=== PATIENT | female | born 1950 | race Caucasian/White ===

== ENCOUNTER 2019-02-09 15:19 | Inpatient (IN) ==
[2019-02-09 16:40] LABS: BASO# 0.03 X1000 (0.0-0.2); BASO% 0.3 % (0.0-0.8); EOS# 0.03 X1000 (0.0-0.7); EOS% 0.3 % (0.0-10.0); HEMOGLOBIN 8.9 g/dL (12.0-16.0); IMM GRAN# 0.02 X1000 (0.0-0.04); IMM GRAN% 0.2 % (0.0-0.5); LYMPH# 1.28 X1000 (1.2-3.4); LYMPH% 14.4 % (20.5-51.1); MCH 30.8 PG (27-31); MCV 93.4 FL (81-99); MONO# 0.56 X1000 (0.11-0.59); MONO% 6.3 % (1.7-9.3); NEUT# 6.96 X1000 (1.4-6.5); NEUT% 78.5 % (42.2-75.2); PLT 341 X1000 (130-400); RBC 2.89 XMIL (4.2-5.4); RDW 11.7 % (11.5-14.5); WBC 8.88 X1000 (4.8-10.8)
[2019-02-09 16:55] LABS: INR 0.92; PROTIME 13.1 Seconds (11.0-16.0); PTT 25.1 Seconds (22.3-41.8)
[2019-02-09] MEDS ORDERED: NS 1,000 ML IV ONE ×2 (16:57→16:58)
[2019-02-09] MEDS ORDERED: PROTONIX PO ONE (16:58)
[2019-02-09 17:01] LABS: AGAP 12; ALB/GLOB RATIO 2.2; ALBUMIN 3.8 g/dL (3.5-5.0); ALKALINE PHOSPHATASE 82 U/L (32-104); BUN 20 mg/dL (8-22); CALCIUM 8.9 mg/dL (8.8-10.2); CHLORIDE 104 mmol/L (98-107); COSMO 279; CREATININE 0.7 mg/dL (0.5-0.9); ESTIMATED GFR > 60; GLUCOSE 120 mg/dL (70-104); GOT 15 U/L (10-30); GPT 13 U/L (10-36); POTASSIUM 4.2 mmol/L (3.5-5.1); SODIUM 138 mmol/L (136-145); TCO2 22 mmol/L (25-35); TOTAL BILIRUBIN < 0.15 mg/dL (0.20-1.00); TOTAL PROTEIN 5.5 g/dL (6.3-8.3)
--- NOTE | 2019-02-09 19:05 | PROVIDER DOCUMENTATION ---
This chart was entered by Selma Rossi Scribe, acting as scribe for Quentin Swenson MD. HPI-General Adult - General Source: patient, family () - History of Present Illness -Gen Adult Nature of Presenting Problems: 68 yowf presents to the ed with c/o rectal bleeding intermittent since friday. pt on exam is pale and sts today had a near syncopal episode while in the shower. pt denies LOC but sts she sit in the shower till feeling passed. pt sts noted bleeding has been dark and bright red in color Location of Pain/Injury: reports: other (rectal bleeding) Pain Radiation: reports: no radiation Quality of Pain: reports: none Severity: reports: moderate Onset/Duration: reports: 2 days ago Timing: reports: still present Context/Activities at Onset: reports: light activity Modifying Factors: improves with: nothing Associated Symptoms: reports: diarrhea, fatigue, genitourinary problems (rectal bleeding), nausea, vomiting, weakness. denies: back/neck pain, chest pain Similar Symptoms Previously?: No Recently seen or treated by another doctor?: No <Quentin Swenson - Last Filed: 02/09/19 19:04> <Mi Beaver - Last Filed: 02/09/19 20:29> - General Chief Complaint: GI Bleed Stated Complaint: WEAK/PASSING BLOOD Time Seen by Provider: 02/09/19 16:27 Allergies/Adverse Reactions: Patient Allergies Allergy/AdvReac Type Severity Reaction Status Date / Time amoxicillin AdvReac Unknown Verified 02/09/19 16:27 codeine AdvReac NAUSEA/VOMI Verified 06/25/14 10:35 TING Home Medications: Home Medication List Medication Instructions Recorded Confirmed Last Taken Type Losartan/Hydrochlorothiazide 1 each PO DAILY 06/25/14 02/09/19 06/25/14 History [Losartan-Hctz 100-12.5 mg Tab] PRAVAstatin [Pravachol] 10 mg PO QHS 06/25/14 02/09/19 06/24/14 History Amlodipine Besylate 10 mg PO DAILY 02/09/19 02/09/19 Unknown History Aspirin 81 mg PO DAILY 02/09/19 02/09/19 Unknown History Cholecalciferol (Vitamin D3) 1,000 unit PO DAILY 02/09/19 02/09/19 Unknown History [Vitamin D3] Ergocalciferol (Vitamin D2) 1 cap PO DIRECTED 02/09/19 02/09/19 Unknown History [Vitamin D] Potassium Chloride [Klor-Con 10] 10 meq PO DAILY 02/09/19 02/09/19 Unknown History Torsemide [Demadex] 20 mg PO DAILY 02/09/19 02/09/19 Unknown History Review of Systems - Adult - REVIEW OF SYSTEMS - ADULT Constitutional: denies: chills, fever Eyes: reports: no symptoms reported Ears, Nose, Mouth & Throat: reports: no symptoms reported Cardiovascular: denies: chest pain, palpitations, syncope Respiratory: denies: cough, shortness of breath, wheezing Gastrointestinal: reports: see HPI, diarrhea, nausea, poor appetite, rectal bleeding, vomiting. denies: abdominal pain Genitourinary: reports: no symptoms reported Musculoskeletal: denies: back pain, neck pain Integumentary: reports: no symptoms reported Neurological: reports: see HPI. denies: dizziness/vertigo, headache/migraines, syncope (near syncope) Psychiatric: reports: no symptoms reported Endocrine: reports: no symptoms reported Hematologic/Lymphatic: reports: see HPI, low blood count Allergic/Immunologic: reports: no symptoms reported All Other Systems: Reviewed and Negative <Quentin Swenson - Last Filed: 02/09/19 19:04> Past History - Adult - PAST MEDICAL HISTORY-ADULT Review of Records: reports: Old Records Reviewed, Nursing Assessment Review, Medications Reviewed, Social history reviewed & non-contributory. 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) Respiratory: reports: denies history Gastrointestinal: reports: denies history Obstetrical/Gynecological: reports: denies history Genitourinary: reports: denies history Musculoskeletal: reports: denies history Neurological: reports: denies history Endocrine/Immune: reports: denies history Other Conditions: reports: denies history - PRIOR SURGERIES/PROCEDURES Surgical/Procedure History: reports: reviewed, not pertinent - IMMUNIZATION STATUS Childhood Immunizations: See Nurse Assessment Flu Vaccine: See Nurse Assessment - FAMILY HISTORY Family History: reviewed, not pertinent - SOCIAL HISTORY Smoking: denies Substance Use: denies Living Situation: family <Quentin Swenson - Last Filed: 02/09/19 19:04> Physical Exam-General - PHYSICAL EXAM-ADULT Initial Vital Signs Reviewed: Yes - CONSTITUTIONAL General Appearance: appears well, alert, no apparent distress - EYES Eyes: PERRL/EOMI, pale conjunctivae - HEAD, EARS, NOSE, MOUTH & THROAT HENMT: moist mucous membranes, normal ENT inspection - NECK Neck: non-tender, full range of motion, supple, normal inspection - RESPIRATORY Respiratory: chest non-tender, lungs clear, normal breath sounds, no pleuratic chest pain, no respiratory distress - CARDIOVASCULAR Cardiovascular: normal peripheral pulses, regular rate, rhythm - CHEST (BREASTS) Chest/Breast: deferred - GASTROINTESTINAL (ABDOMEN) Abdominal Exam: normal bowel sounds, non tender, soft - GENITOURINARY Female Genitalia/Pelvic Exam: deferred Hemoccult Exam: other (dark maroon stool) - LYMPHATIC Lymphatic: no adenopathy - MUSCULOSKELETAL Back Exam: normal inspection, no CVA tenderness, no vertebral tenderness Extremity: normal range of motion, non-tender, normal gait, normal inspection - SKIN Integumentary: normal turgor, warm/dry, pallor - NEUROLOGIC Neurologic: grossly normal - PSYCHIATRIC Psych/Mental Status: normal mood/affect, normal thought content, normal thought process, oriented x 3 <Quentin Swenson - Last Filed: 02/09/19 19:04> Progress - PLAN OF CARE/RESULTS Progress/Plan/Lab Results: Vital Signs - 8 hr 02/09/19 15:45 02/09/19 16:17 02/09/19 16:30 Temperature 97.6 F Pulse Rate 97 H 94 H Respiratory Rate 18 16 Blood Pressure 111/68 110/74 O2 Sat by Pulse Oximetry 100 100 100 Laboratory Results - last 24 hr 02/09/19 02/09/19 02/09/19 16:14 16:14 16:14 WBC 8.88 RBC 2.89 L Hgb 8.9 L Hct 27.0 L MCV 93.4 MCH 30.8 MCHC 33.0 RDW Std Deviation 11.7 Plt Count 341 MPV 10.0 Immature Gran % (Auto) 0.2 Neut % (Auto) 78.5 H Lymph % (Auto) 14.4 L [place] % (Auto) 6.3 Eos % (Auto) 0.3 Baso % (Auto) 0.3 Immature Gran # (Auto) 0.02 Neut # (Auto) 6.96 H Lymph # (Auto) 1.28 [place] # (Auto) 0.56 Eos # (Auto) 0.03 Baso # (Auto) 0.03 PT 13.1 INR 0.92 PTT (Actin FS) 25.1 Sodium 138 Potassium 4.2 Chloride 104 Carbon Dioxide 22 L Anion Gap 12 BUN 20 Creatinine 0.7 Estimated GFR/1.73 m2 > 60 BUN/Creatinine Ratio 29 Glucose 120 H Calculated Osmolality 279 Calcium 8.9 Total Bilirubin < 0.15 L AST 15 ALT 13 Alkaline Phosphatase 82 Total Protein 5.5 L Albumin 3.8 Globulin 1.7 Albumin/Globulin Ratio 2.2 Orders Category Date Time Status CBC WITH ELECTRONIC DIFF [HEME] Stat Lab 02/09/19 16:14 Completed COMPREHENSIVE METABOLIC PANEL [CHEM] Stat Lab 02/09/19 16:14 Completed OCCULT BLOOD SCREENING [STOOL] Stat Lab 02/09/19 15:50 Uncollected PROTIME WITH INR [COAG] Stat Lab 02/09/19 16:14 Completed PTT [COAG] Stat Lab 02/09/19 16:14 Completed TYPE & SCREEN [BBK] Stat Lab 02/09/19 16:14 Received 0.9% Sodium Chloride Inj [Ns] 1,000 ml Med 02/09/19 16:58 Active IV 150 mls/hr 0.9% Sodium Chloride Inj [Ns] 1,000 ml Med 02/09/19 16:57 Active IV 999 mls/hr Pantoprazole [Protonix] Med 02/09/19 16:58 Discontinued 40 mg PO NOW ONE GI Bleed (possible) Stat Oth 02/09/19 15:50 Ordered Result Diagrams: 02/09/19 16:14 02/09/19 16:14 - CHANGE OF SHIFT REPORT (ED Provider) 1 Report Given and Care Transferred to:: [facility] Time of Transfer: 19:00 Items Pending: Physician Consult/Arrival <Quentin Swesnon - Last Filed: 02/09/19 19:04> - PLAN OF CARE/RESULTS Progress/Plan/Lab Results: Vital Signs - 8 hr 02/09/19 15:45 02/09/19 16:17 02/09/19 16:30 Temperature 97.6 F Pulse Rate 97 H 94 H Respiratory Rate 18 16 Blood Pressure 111/68 110/74 O2 Sat by Pulse Oximetry 100 100 100 02/09/19 16:33 02/09/19 17:00 02/09/19 17:03 Temperature Pulse Rate 91 H 96 H 94 H Respiratory Rate 14 15 21 Blood Pressure 117/63 128/64 O2 Sat by Pulse Oximetry 98 95 97 02/09/19 17:30 02/09/19 17:33 02/09/19 18:28 Temperature Pulse Rate 89 88 94 H Respiratory Rate 21 13 18 Blood Pressure 108/68 124/68 O2 Sat by Pulse Oximetry 100 96 100 02/09/19 18:30 02/09/19 18:33 02/09/19 18:40 Temperature Pulse Rate 95 H 93 H 91 H Respiratory Rate 22 21 12 Blood Pressure 130/66 124/68 O2 Sat by Pulse Oximetry 99 99 97 02/09/19 18:05 Stool Occult Blood (NURIS) - Final Stool Laboratory Results - last 24 hr 02/09/19 02/09/19 02/09/19 16:14 16:14 16:14 WBC 8.88 RBC 2.89 L Hgb 8.9 L Hct 27.0 L MCV 93.4 MCH 30.8 MCHC 33.0 RDW Std Deviation 11.7 Plt Count 341 MPV 10.0 Immature Gran % (Auto) 0.2 Neut % (Auto) 78.5 H Lymph % (Auto) 14.4 L [place] % (Auto) 6.3 Eos % (Auto) 0.3 Baso % (Auto) 0.3 Immature Gran # (Auto) 0.02 Neut # (Auto) 6.96 H Lymph # (Auto) 1.28 [place] # (Auto) 0.56 Eos # (Auto) 0.03 Baso # (Auto) 0.03 PT 13.1 INR 0.92 PTT (Actin FS) 25.1 Sodium 138 Potassium 4.2 Chloride 104 Carbon Dioxide 22 L Anion Gap 12 BUN 20 Creatinine 0.7 Estimated GFR/1.73 m2 > 60 BUN/Creatinine Ratio 29 Glucose 120 H Calculated Osmolality 279 Calcium 8.9 Total Bilirubin < 0.15 L AST 15 ALT 13 Alkaline Phosphatase 82 Total Protein 5.5 L Albumin 3.8 Globulin 1.7 Albumin/Globulin Ratio 2.2 Blood Type Antibody Screen 02/09/19 16:14 WBC RBC Hgb Hct MCV MCH MCHC RDW Std Deviation Plt Count MPV Immature Gran % (Auto) Neut % (Auto) Lymph % (Auto) [place] % (Auto) Eos % (Auto) Baso % (Auto) Immature Gran # (Auto) Neut # (Auto) Lymph # (Auto) [place] # (Auto) Eos # (Auto) Baso # (Auto) PT INR PTT (Actin FS) Sodium Potassium Chloride Carbon Dioxide Anion Gap BUN Creatinine Estimated GFR/1.73 m2 BUN/Creatinine Ratio Glucose Calculated Osmolality Calcium Total Bilirubin AST ALT Alkaline Phosphatase Total Protein Albumin Globulin Albumin/Globulin Ratio Blood Type A POSITIVE Antibody Screen NEGATIVE Orders Category Date Time Status CBC WITH ELECTRONIC DIFF [HEME] Stat Lab 02/09/19 16:14 Completed COMPREHENSIVE METABOLIC PANEL [CHEM] Stat Lab 02/09/19 16:14 Completed OCCULT BLOOD SCREENING [STOOL] Stat Lab 02/09/19 18:05 Completed PROTIME WITH INR [COAG] Stat Lab 02/09/19 16:14 Completed PTT [COAG] Stat Lab 02/09/19 16:14 Completed TYPE & SCREEN [BBK] Stat Lab 02/09/19 16:14 Completed 0.9% Sodium Chloride Inj [Ns] 1,000 ml Med 02/09/19 16:58 Active IV 150 mls/hr 0.9% Sodium Chloride Inj [Ns] 1,000 ml Med 02/09/19 16:57 Discontinued IV 999 mls/hr Pantoprazole [Protonix] Med 02/09/19 16:58 Discontinued 40 mg PO NOW ONE GI Bleed (possible) Stat Oth 02/09/19 15:50 Ordered Result Diagrams: 02/09/19 16:14 02/09/19 16:14 - CONSULTS/PCP/HOSPITALIST Notification #1 *Consult/PCP/Hospitalist*: Dr Jones Time Discussed: 20:03 Consult Disposition: Admit <Mi Beaver - Last Filed: 02/09/19 20:29> Departure - Departure Date of Disposition Decision: 02/09/19 Time of Disposition Decision: 18:28 Certified Medical Emergency: Emergent - Critical Care Note This patient required my direct & personal management of CC.: No <Quentin Swenson - Last Filed: 02/09/19 19:04> <Mi Beaver - Last Filed: 02/09/19 20:29> - Departure DIAGNOSIS: GI bleed Disposition: ADMITTED INPATIENT 09 Condition: Stable Referrals and Follow-Ups: Mary Velasco MD [Primary Care Provider] - Attestation - Physician/ BRIDGET Attestation Patient care was provided by Advanced Practice Provider:: No The physician spent face to face time with patient:: Yes Advanced Practice Provider documentation review:: Supervising physician onsite and consulted in the evaluation and care of this patient. The physician did have a face to face encounter with the patient. <Quentin Swenson - Last Filed: 02/09/19 19:04> This chart was documented by the indicated scribe, (Selma Rossi Scribe) and accurately reflects the services I performed and decisions made by me, Quentin Swenson MD, as attested by the provider's signature.
--- NOTE | 2019-02-09 21:56 | HISTORY AND PHYSICAL ---
PRIMARY CARE PHYSICIAN: Dr. Mary Velasco. CHIEF COMPLAINT: Diarrhea and blood for the past 2 days. HISTORY OF PRESENTING ILLNESS: This is a 68-year-old female with a history of hypertension and hyperlipidemia who presented to the emergency department with 2 days history of having diarrhea and noticing blood in the stool. She described the blood as dark blood and subsequently she had come to the emergency department. In the ED, she was evaluated and as per ER physician, she was Hemoccult positive. Due to these presenting symptoms and findings, she will require admission for further management. At the time of my examination, she denied any headache, fever, chills, chest pain, shortness of breath, but complained of melanotic stools and diarrhea. PAST MEDICAL HISTORY: Includes hypertension, hyperlipidemia. PAST SURGICAL HISTORY: None. ALLERGIES: Amoxicillin and codeine. CURRENT MEDICATIONS: Include Norvasc 10 mg p.o. daily, aspirin 81 mg p.o. daily, losartan HCT 100/12.5 one p.o. daily, potassium 10 mEq p.o. daily, pravastatin 10 mg p.o. at bedtime, torsemide 20 mg p.o. daily. SOCIAL HISTORY: No history of smoking, alcohol or illicit drug use. FAMILY HISTORY: No history of coronary disease. REVIEW OF SYSTEMS: Fourteen point review of system as listed in HPI. Other systems negative. PHYSICAL EXAMINATION: GENERAL: Cooperative, friendly female. She is resting comfortably now. VITAL SIGNS: Temperature 97.6 degrees, pulse 97, respiration 18, blood pressure 111/68. HEENT: Atraumatic, normocephalic. Extraocular movements intact. PERRLA. NECK: Supple. CHEST: Clear to auscultation. CARDIOVASCULAR: Regular rate and rhythm. ABDOMEN: Soft. Positive bowel sounds. EXTREMITIES: No edema. NEUROLOGIC: She is awake, alert, oriented x3. Other exam nonfocal. GENITOURINARY: No bladder distention. SKIN: Warm. LABORATORIES AND STUDIES: WBCs 8.88, hemoglobin 8.9, hematocrit 27.0, platelets 341,000. Sodium 138, potassium 4.2, chloride 104, CO2 22, BUN is 20, creatinine 0.7, glucose is 120. ASSESSMENT: This is a 68-year-old female with a history of hypertension, hyperlipidemia, who presented to the emergency department with 2 days history of having diarrhea and dark blood in her stools. She was evaluated in the emergency department. Due to her presenting symptoms, she will require admission for further management. ASSESSMENT: 1. Suspected upper gastrointestinal bleed. 2. Hypertension. 3. Hyperlipidemia. PLAN: 1. We will admit patient to medical floor with telemetry. 2. We will keep patient NPO. 3. Continue patient on pantoprazole IV. 4. We will consult Gastroenterology. 5. Continue to monitor hemoglobin and hematocrit closely. 6. Monitor blood pressure closely. 7. We will hold other home medications for now. 8. We will put patient on deep vein thrombosis prophylaxis with sequential compression devices. 9. We will continue to follow and reassess. Make further recommendation based on patient's clinical course. cc: Cesario Jones MD
[2019-02-09] MEDS ORDERED: PROTONIX IV SCH (22:56)
[2019-02-09] MEDS ORDERED: SODIUM CHLORIDE 0.9% INJ SCH (22:56)
[2019-02-09] MEDS ORDERED: ZOFRAN IV PRN (22:56)
[2019-02-10] MEDS ORDERED: SODIUM CHLORIDE 0.9% INJ SCH (00:30)
[2019-02-10 02:54] LABS: URINE SOURCE CLEAN CATCH
[2019-02-10 03:02] LABS: BILIRUBIN URINE NEGATIVE (NEGATIVE); BLOOD URINE NEGATIVE (NEGATIVE); COLOR YELLOW; GLUCOSE URINE NEGATIVE (NEGATIVE); KETONE URINE NEGATIVE (NEGATIVE); LEUKOCYTES URINE TRACE (NEGATIVE); NITRITE URINE NEGATIVE (NEGATIVE); PH URINE 5.5; PROTEIN URINE NEGATIVE (NEGATIVE); SP GRAVITY URINE 1.026; TURBIDITY URINE CLEAR (CLEAR); UROBILINOGEN URINE NORMAL (NORMAL)
[2019-02-10 03:03] LABS: UR EPITHELIAL CELLS <10 /HPF (<10); URINE BACTERIA NEGATIVE /HPF; URINE RBC <10 /HPF (<10); URINE WBC <10 /HPF (<10)
[2019-02-10] MEDS ORDERED: NEXIUM IV SCH (05:00)
[2019-02-10 08:34] LABS: AGAP 6; BUN 24 mg/dL (8-22); CALCIUM 7.7 mg/dL (8.8-10.2); CHLORIDE 112 mmol/L (98-107); COSMO 287; CREATININE 0.6 mg/dL (0.5-0.9); ESTIMATED GFR > 60; GLUCOSE 103 mg/dL (70-104); SODIUM 142 mmol/L (136-145); TCO2 24 mmol/L (25-35)
[2019-02-10 08:42] LABS: BASO# 0.02 X1000 (0.0-0.2); BASO% 0.2 % (0.0-0.8); EOS# 0.05 X1000 (0.0-0.7); EOS% 0.5 % (0.0-10.0); HEMATOCRIT 19.4 % (37.0-47.0); HEMOGLOBIN 6.2 g/dL (12.0-16.0); LYMPH# 2.61 X1000 (1.2-3.4); LYMPH% 27.8 % (20.5-51.1); MCH 30.7 PG (27-31); MONO# 0.57 X1000 (0.11-0.59); MONO% 6.1 % (1.7-9.3); MPV 10.2 FL (7.4-10.4); NEUT# 6.14 X1000 (1.4-6.5); NEUT% 65.4 % (42.2-75.2); PLT 281 X1000 (130-400); RBC 2.02 XMIL (4.2-5.4); RDW 12.2 % (11.5-14.5); WBC 9.39 X1000 (4.8-10.8)
--- NOTE | 2019-02-10 08:48 | PROGRESS NOTE ---
DATE: 02/10/2019 SUBJECTIVE: Ms. Trevino was admitted overnight. This morning, there was a CAT call because she fell down. She blacked out using the restroom. I understand she had a lot of bleeding early this morning when she was using the restroom. Subsequently, she just passed out and a CAT call was made. When I came to see her, a lot of providers were assisting at the time including the nurses. Ms. Trevino was extremely pale and the was at the bedside. Ms. Trevino and the tell me that Ms. Trevino takes ibuprofen on a regular basis. However, for the past 2 weeks, she has been taking more than necessary because she has hurt her back working in the garden. Since Friday, she has been having some maroon-colored bleeding. She came to the emergency department because of symptomatic anemia. OBJECTIVE: Current Vital Signs: Blood pressure is 116/63, pulse of 100, respiration are 14, temperature is 98.2 degrees, the patient is saturating 99% on room air. General Examination: Ms. Trevino is a 68-year-old, female. She is in bed. She looks extremely pale. Neck: Supple. Chest: Clear to auscultation. No crepitations. No rhonchi. Cardiovascular: Slightly tachycardic but no murmurs, no rubs, no gallops. Abdomen: Soft, nontender. Extremities: No pedal edema. LATHE TENDER: The patient is awake, alert, oriented, but just extremely weak and tired. Laboratory Data: No new lab work. Yesterday, her hemoglobin was 8.9. ASSESSMENT: 1. Acute gastrointestinal bleed with hemodynamic instability associated with syncopal episode this morning. The patient is going to be transferred to the intensive care unit. We will continue with hemodynamic monitoring. She is going to be grouped and crossmatched, and given 2 units of packed red blood cells stat, and transfuse accordingly. Gastroenterology has also been consulted and we are waiting for their recommendations. The patient is also on a proton pump inhibitor. 2. Anemia secondary to acute gastrointestinal blood loss. 3. History of hypertension. 4. Dyslipidemia. PLAN: Ms. Trevino is going to be transferred to the ICU, grouped and crossmatched, transfused 2 PRBCs stat. Check another hemoglobin and hematocrit 2 hours after transfusion and await further recommendations from GI. Plan has been discussed in detail with the patient and the who was at the bedside. Critical time spent 45 minutes cc: Brett Liz MD MTDD
--- NOTE | 2019-02-10 09:23 | EKG Report ---
Test Performed on : 02/10/2019 08:09:30 AM Test Reason : CAT CALL Blood Pressure : / mmHG Vent. Rate : 096 BPM Atrial Rate : 096 BPM P-R Int : 118 ms QRS Dur : 086 ms QT Int : 328 ms P-R-T Axes : 065 005 247 degrees QTc Int : 414 ms Normal sinus rhythm. Nonspecific T wave abnormality Abnormal ECG No previous ECGs available Confirmed by Dheeraj Foster MD ([id number]) on 02/10/2019 6:05:58 PM
[2019-02-10] MEDS: NS 1,000 ML IV SCH ×2 (10:27→23:15)
[2019-02-10] MEDS: NORVASC PO SCH (10:28)
--- NOTE | 2019-02-10 12:48 | GASTROENTEROLOGY CONSULTATION ---
DATE: 02/10/2019 REASON FOR CONSULTATION: GI bleeding, severe anemia, syncope. HISTORY OF PRESENT ILLNESS: This is a 68-year-old, white female who reports onset of symptoms Friday night. She had woke up with diarrhea and had several maroon-colored stools. On Friday, she took an Imodium and did not have bowel movements. Friday morning, she had 2 more bloody stools. She was in the shower at home and passed out. She came in to the hospital for further evaluation. This morning, the patient had a large bloody maroon-colored stool and again passed out. A CAT call was placed and she has been transferred to CCU. Currently, she is awake and alert. No acute distress. Her is at the bedside. She has received 2 units of packed red blood cells. Her vital signs have remained stable with some slight drop in her blood pressure, lowest reading of 100/58. Hemoglobin and hematocrit this morning were 6.2 and 19.4. Patient reports hurting her neck moving some furniture and cleaning out her mother's house about 2 weeks ago. Since then, she has been taking frequent ibuprofen. She also takes an 81 mg aspirin. Her last colonoscopy was in 2013 that showed diverticulosis. Currently, she denies abdominal pain. PAST MEDICAL HISTORY: Hypertension, hyperlipidemia. PAST SURGICAL HISTORY: Oral surgery and a digital cyst removed from her right finger. ALLERGIES: Amoxicillin, codeine. HOME MEDICATIONS: Amlodipine 10 mg daily, aspirin 81 mg daily, vitamin D3 daily, vitamin D as directed, losartan/hydrochlorothiazide 100/12.5 daily, potassium 10 mEq daily, Pravachol 10 mg every night, Demadex 20 mg daily. SOCIAL HISTORY: She denies tobacco or alcohol use. She is . She has 2 children. REVIEW OF SYSTEMS: HEENT: She has had dizziness and syncopal episodes. Cardiovascular: No reported chest pain. Pulmonary: No reported cough or shortness of breath. GI: No reported abdominal pain. She had reported onset of bleeding and diarrhea on Friday evening. Neurological: No history of stroke or seizures. Musculoskeletal: She reports arthritis pains and also recent neck pain that she has been taking ibuprofen for. PHYSICAL EXAMINATION: Vital Signs: Temperature 98.1 degrees, pulse 88, respirations 16, blood pressure 122/65. General: The patient is awake, alert, and in no acute distress. Her is at the bedside. HEENT: Normocephalic, atraumatic. Pupils equal, round, and reactive to light. The nurse had reported significant paleness but that has improved after receiving 2 units of packed red blood cells. Respiratory: Lung sounds clear bilaterally. Cardiovascular: Regular rate and rhythm. Abdomen: Soft, nontender. Positive bowel sounds. Extremities: No lower extremity edema noted. Neurological: Cranial nerves 2-12 grossly intact. Patient is awake, alert, oriented to person, place, and time. DIAGNOSTIC RESULTS: Laboratory: WBC 9.39, hemoglobin 6.2, hematocrit 19.4, MCV 96.0, platelets 281,000. Coagulation: Prothrombin time 13.1, INR 0.92, PTT 25.1. Chemistry: Sodium 142, potassium 4.0, chloride 112, CO2 24, BUN 24, creatinine 0.6, glucose 103, calcium 7.7. Total bilirubin less than 0.15, AST 15, ALT 13, alkaline phosphatase 82. ASSESSMENT AND PLAN: 1. Acute gastrointestinal bleeding. 2. Syncope. 3. Severe anemia. Patient has received 2 units of packed red blood cells. Hemoglobin and hematocrit will be repeated. Transfuse further packed red blood cells if needed. 4. Recent nonsteroidal anti-inflammatory drug use. Patient had been using frequent ibuprofen along with her aspirin 81 mg daily. Patient's last colonoscopy was in 2013, that showed diverticulosis. 5. We will proceed with esophagogastroduodenoscopy for further evaluation. Monitor hemoglobin and hematocrit. Monitor for further active bleeding. Transfuse further packed red blood cells if needed. I have explained the esophagogastroduodenoscopy procedure to the patient along with her and they wish to proceed. I have discussed benefits versus risks. Further plans to be made according to findings. Thank you for this consultation. I have discussed this case with Dr. Odell. Dictated by MAYCOL Keller for Ryne Odell MD cc: MAYCOL Cordero MD [facility]
[2019-02-10 13:09] LABS: HEMOGLOBIN 8.7 g/dL (12.0-16.0)
[2019-02-10 13:10] LABS: HEMATOCRIT 26.8 % (37.0-47.0)
[2019-02-10] MEDS ORDERED: DIPRIVAN 1% ONE (14:16)
[2019-02-10] MEDS ORDERED: XYLOCAINE-MPF 2% ONE (14:42)
--- NOTE | 2019-02-10 14:51 | ENDOSCOPY OPERATIVE NOTE ---
[facility] ENDOSCOPY OPERATIVE NOTE , PATIENT: Brooke Trevino ADMISSION DATE: 02/10/2019 MR#: [id number] : 1950 [id number] EGD PROCEDURE REPORT PROCEDURE DATE: 02/10/2019 SURGEON: Ryne Odell MD STATUS: inpatient COAT TAILOR: Brayan Pineda and Sima Jacob PREOPERATIVE DIAGNOSIS: The patient is a 68 yr old female here for an EGD due to hematochezia, melen a, and acute post hemorrhagic anemia. PROCEDURE PERFORMED: EGD, diagnostic MEDICATIONS: Per Anesthesia TOPICAL ANESTHETIC: none CONSENT: The patient understands the risks and benefits of the procedure and understands that these r isks include, but are not limited to: sedation, allergic reaction, infection, perforation and/or bleeding. Alternative means of evaluation and treatment include, among others: physical exam, x-rays, and/or surgical intervention. The patient elects to proceed with this endoscopic procedure. HISORY AND PHYSICAL: 02/10/2019 function. Hand hygiene and appropriate measures for infection prevention was taken. After the risks, benefits and alternatives of the procedure were thoroughly explained, Informed consent was verified, confirmed and timeout was successfully executed by the treatment team. The patient was anesthetized with topical anesthesia and the [id number] ([id number]) endoscope was introduced through the mouth and advanced to the second portion of the duoden um. Retroflexion was performed in the stomach and revealed no abnormalities. The gastroscope was then slowly withdraw n and removed. ESOPHAGUS: The mucosa of the esophagus appeared normal. STOMACH: The mucosa of the stomach appeared normal. DUODENUM: The duodenal mucosa showed no abnormalities. PERTINENT NEGATIVES: There was no evidence of blood. SPECIMENS REMOVED: No ADVERSE EVENTS: There were no complications. POSTOPERATIVE DIAGNOSIS: 1. The mucosa of the esophagus appeared normal 2. The mucosa of the stomach appeared normal 3. The duodenal mucosa showed no abnormalities RECOMMENDATIONS: 1. Resume pre-procedure medications 2. Transfer to ICU REPEAT EXAM: Ryne Odell MD eSigned: Ryne Odell MD 02/10/2019 2:51 PM cc: PATIENT NAME: Brooke Trevino MR#: [id number]
[2019-02-10 21:31] LABS: HEMATOCRIT 26.5 % (37.0-47.0); HEMOGLOBIN 8.7 g/dL (12.0-16.0)
[2019-02-11 05:39] LABS: HEMATOCRIT 24.7 % (37.0-47.0); HEMOGLOBIN 8.2 g/dL (12.0-16.0)
[2019-02-11] MEDS: PRILOSEC PO SCH (06:27)
[2019-02-11] MEDS: NORVASC PO SCH (08:24)
--- NOTE | 2019-02-11 09:07 | PROGRESS NOTE ---
DATE: 02/11/2019 SUBJECTIVE: This morning Ms. Trevino referred to be doing well. No new complaints. She did have a bowel movement early on today which still looked dark maroon-colored. OBJECTIVE: Vital signs: Blood pressure is 132/77, pulse of 93, respirations 14, temperature 98.7 degrees. General: Ms. Trevino is a 68-year-old female. She is in bed. She is not in any distress. HEENT: Mucosa is pink and moist. Anicteric. Acyanotic. Neck: Supple. Chest: Clear to auscultation. Cardiovascular: Regular rate and rhythm. Abdomen: Soft, nontender. Extremities: No pedal edema TECHNOLOGY TEACHER: Patient is awake, alert, and oriented. There is no focal neurological deficit. LABORATORY DATA: The patient hemoglobin is 8.2, glucose is 141 this morning. An esophagogastroduodenoscopy was done yesterday which shows normal esophageal mucosa and normal stomach as well as no abnormality shown on the duodenum. ASSESSMENT: 1. Acute gastrointestinal bleed with hemodynamic instability. The patient is currently hemodynamically stable. No more symptomatic. She is status post esophagogastroduodenoscopy which was unremarkable and there is a plan for colonoscopy tomorrow. We will continue to monitor her hemoglobin and hematocrit. 2. Anemia secondary to acute gastrointestinal blood loss. Hemoglobin is currently at 8.2. The patient is status post 2 packed red blood cell transfusion. She did have another bowel movement this morning which was bloody. We will repeat the hemoglobin and hematocrit later on today and transfuse if needed. 3. History of hypertension, stable. 4. Dyslipidemia controlled. PLAN: So in general I think Ms. Trevino is now hemodynamically stable. She is no more symptomatic. However, she did have another bowel movement this morning which was bloody. We are going to continue to trend her hemoglobin and hematocrit, transfuse if necessary and await for colonoscopy tomorrow. We will still keep Ms. Trevino in the ICU for today. cc: Brett Liz MD
[2019-02-11] MEDS ORDERED: GOLYTELY PO ONE (14:00)
[2019-02-11 16:48] LABS: HEMATOCRIT 27.7 % (37.0-47.0); HEMOGLOBIN 9.4 g/dL (12.0-16.0)
--- NOTE | 2019-02-11 19:15 | GASTROENTEROLOGY PROGRESS NOTE ---
DATE: 02/11/2019 PRIMARY RECEIVING COORDINATOR: Ryne Odell MD SUBJECTIVE: The patient is currently resting in bed. She is drinking GoLytely. She is preparing for colonoscopy tomorrow. She is passing old blood in the stools. She denies any nausea, vomiting or vomiting blood. OBJECTIVE: Vital signs: Temperature 99.1 degrees, pulse of 97, respiratory rate of 16, blood pressure 140/65, saturating 96% on room air. Body weight of 146 pounds 1.6 ounces, BMI 26.7 kg/m2. Generally the patient is moderately nourished, sitting in bed in no acute distress. HEENT: Pale conjunctivae. No icterus. Neck is supple. Abdomen is soft, nontender, nondistended. No guarding. Extremities: No cyanosis, clubbing or edema. Neurologic-fraser, alert, awake, oriented x3. LABORATORY DATA: Her hemoglobin and hematocrit are 9.4 and 27.7. She has been given 2 units of blood transfusion yesterday. IMPRESSION: 1. Gastrointestinal bleed. 2. Anemia. 3. Negative esophagogastroduodenoscopy yesterday by Dr. Odell. 4. Hypertension. 5. Hyperlipidemia. RECOMMENDATIONS: She will continue on clear liquid diet. She will be NPO past midnight. She will finish her GoLytely. She is scheduled for colonoscopy with Dr. Odell tomorrow, and Dr. Odell will resume care from tomorrow. We will continue to watch her blood counts and transfuse as needed. She is on PPIs for GI prophylaxis. The above plan was discussed with the patient and all questions were answered. Please call us with any questions. cc: MD Ryne Rodriguez MD Lindsay E. Smith, MD
[2019-02-11 21:08] LABS: HEMATOCRIT 29.5 % (37.0-47.0); HEMOGLOBIN 9.7 g/dL (12.0-16.0)
[2019-02-12 01:30] LABS: HEMATOCRIT 26.9 % (37.0-47.0); HEMOGLOBIN 8.8 g/dL (12.0-16.0)
[2019-02-12] MEDS: PRILOSEC PO SCH (06:12)
[2019-02-12 06:14] LABS: BASO# 0.01 X1000 (0.0-0.2); BASO% 0.2 % (0.0-0.8); EOS# 0.08 X1000 (0.0-0.7); EOS% 1.2 % (0.0-10.0); HEMATOCRIT 27.8 % (37.0-47.0); HEMOGLOBIN 9.2 g/dL (12.0-16.0); LYMPH# 2.15 X1000 (1.2-3.4); LYMPH% 32.7 % (20.5-51.1); MCH 29.7 PG (27-31); MCHC 33.1 g/dL (33-37); MCV 89.7 FL (81-99); MONO# 0.62 X1000 (0.11-0.59); MONO% 9.4 % (1.7-9.3); MPV 9.5 FL (7.4-10.4); NEUT# 3.71 X1000 (1.4-6.5); NEUT% 56.5 % (42.2-75.2); PLT 260 X1000 (130-400); RDW 14.2 % (11.5-14.5); WBC 6.57 X1000 (4.8-10.8)
[2019-02-12 06:57] LABS: AGAP 12; BUN 6 mg/dL (8-22); CALCIUM 8.6 mg/dL (8.8-10.2); CHLORIDE 105 mmol/L (98-107); COSMO 280; CREATININE 0.6 mg/dL (0.5-0.9); ESTIMATED GFR > 60; GLUCOSE 87 mg/dL (70-104); POTASSIUM 3.4 mmol/L (3.5-5.1); SODIUM 142 mmol/L (136-145); TCO2 25 mmol/L (25-35)
[2019-02-12] MEDS ORDERED: DIPRIVAN 1% ONE ×2 (08:06→09:13)
[2019-02-12] MEDS ORDERED: FENTANYL ONE (08:57)
[2019-02-12] MEDS ORDERED: XYLOCAINE-MPF 2% ONE (09:13)
[2019-02-12] MEDS: NORVASC PO SCH (10:48)
--- NOTE | 2019-02-12 11:51 | Diag Imaging Result Doc PS360 ---
EXAM: SMALL BOWEL SERIES ONLY 02/12/2019 HISTORY: Acute GI bleeding eitio TECHNIQUE: Eight images, 51 seconds fluoroscopy time, 1038.7 cGy. COMMENT: There is contrast in the colon by 40 minutes. There is no evidence of mucosal fold thickening or stricture. There is no focal tenderness to palpation. The terminal ileum is normal in appearance. IMPRESSION: No definite abnormality. Electronically signed by Jeancarlos Sethi 02/12/2019 11:48 AM
--- NOTE | 2019-02-12 12:21 | PROGRESS NOTE ---
DATE: 02/12/2019 SUBJECTIVE: This morning, Ms. Trevino referred to be doing well. She just came out of endoscopy procedure. Denies any new complaints. OBJECTIVE: Vital signs: Blood pressure is 117/60, pulse of 69, respiration is 13, temperature is 98.4 degrees. General: Ms. Trevino is a 68-year-old female. She is in bed, no distress. HEENT: Mucosa is pink and moist. Anicteric. Acyanotic. Neck: Supple. Chest: Good air entry bilateral. There were no crepitations, no rhonchi. Cardiovascular: Regular rate and rhythm. There are no murmurs, no rubs, no gallops. Gastrointestinal: Abdomen is soft, nontender. Bowel sounds present. Extremities: No pedal edema. Central nervous system: Patient is awake, alert, and oriented. LABORATORY DATA: Hemoglobin was 9.2. Rest of cell count normal. Chemistry is also reviewed, potassium is 3.4, rest of chemistry is within normal range. ASSESSMENT: 1. Acute gastrointestinal bleed with hemodynamic instability on presentation, improved. Patient is currently asymptomatic. 2. Anemia secondary to acute gastrointestinal bleed. The patient is status post 2 PRBC transfusion. She has also undergone EGD which was unremarkable. A colonoscopy has been done this morning and we are pending the official report on that. 3. History of hypertension, controlled. 4. Dyslipidemia, stable. PLAN: In general, Ms. Trevino seems to be doing well. She had a colonoscopy this morning. We are waiting for the official report. Hemoglobin and hematocrit seems to be fairly stable. I think we can transfer her from the ICU to a regular medical floor and plan her discharge if the colonoscopy was unremarkable. cc: Brett Liz MD
--- NOTE | 2019-02-12 12:47 | OPERATIVE NOTE ---
PROCEDURE DATE: 02/12/2019 PROCEDURE: Colonoscopy. PREOPERATIVE DIAGNOSIS: Acute gastrointestinal bleed, anemia secondary to gastrointestinal bleed. Esophagogastroduodenoscopy negative. POSTOPERATIVE DIAGNOSIS: Mild diverticulosis, otherwise normal colon up to terminal ileum. HISTORY: This is a 68-year-old white female admitted to hospital with acute GI bleed. She was anemic. EGD was done earlier to identify the source. EGD was negative. Colonoscopy was schedule to rule out lower GI pathology. DESCRIPTION OF PROCEDURE: Informed consent obtained from the patient. The procedure, risks, benefits, alternatives were explained in layman's terms. She understood. All the pertinent questions were answered. Patient was brought to the Endoscopy Unit, and was premedicated as per Anesthesia. After adequate sedation, while she was lying in left lateral position, digital rectal exam was performed which was normal. The scope was then gently introduced into the rectum and advanced under direct vision through the parts of colon all the way up to the cecum. The cecum was identified by ileocecal valve and appendiceal orifice. Scope was then passed through the ileocecal valve into terminal ileum. About 8 to 10 cm of terminal ileum was examined, which was normal. The scope was withdrawn back into the cecum, back through the parts of colon out to the rectum, paying careful attention to details. Preparation was good. The visualized portion of the colon revealed mild diverticulosis scattered throughout the colon. A few diverticula was seen on the right side and a few on the left side also, but none of them showed any evidence of active bleeding or stigmata of recent bleed. In fact, there was not even a drop of blood or altered blood throughout the colon, including the terminal ileum. Retroflexed view of rectum revealed no pathology either. The scope was then removed. Patient tolerated the procedure well. No complications noted. Patient was then transferred to the recovery area in a stable condition. IMPRESSION: Mild diverticulosis, otherwise normal colon all the way up to the terminal ileum. RECOMMENDATION: I would resume her liquid diet and advance as tolerated once small-bowel follow- through was done, and I would recommend small-bowel follow-through to check for pathology in the small bowel resulting in her acute GI bleed. Will resume all her medications and we will follow as an outpatient after discharge if the small-bowel follow-through is negative. I have explained the findings and plan to the patient. She understands. All the pertinent questions answered. cc: Ryne Odell MD
[2019-02-13] MEDS: PRILOSEC PO SCH (06:06)
[2019-02-13 07:03] LABS: BASO# 0.01 X1000 (0.0-0.2); BASO% 0.2 % (0.0-0.8); EOS# 0.08 X1000 (0.0-0.7); EOS% 1.4 % (0.0-10.0); HEMATOCRIT 27.1 % (37.0-47.0); HEMOGLOBIN 8.8 g/dL (12.0-16.0); LYMPH% 29.2 % (20.5-51.1); MCH 29.5 PG (27-31); MCHC 32.5 g/dL (33-37); MCV 90.9 FL (81-99); MONO# 0.51 X1000 (0.11-0.59); MONO% 8.8 % (1.7-9.3); MPV 9.6 FL (7.4-10.4); NEUT# 3.52 X1000 (1.4-6.5); NEUT% 60.4 % (42.2-75.2); PLT 287 X1000 (130-400); RBC 2.98 XMIL (4.2-5.4); RDW 14.1 % (11.5-14.5); WBC 5.82 X1000 (4.8-10.8)
[2019-02-13 07:14] LABS: AGAP 9; ALBUMIN 3.4 g/dL (3.5-5.0); BUN 5 mg/dL (8-22); CALCIUM 8.9 mg/dL (8.8-10.2); CHLORIDE 106 mmol/L (98-107); COSMO 282; CREATININE 0.7 mg/dL (0.5-0.9); ESTIMATED GFR > 60; GLUCOSE 96 mg/dL (70-104); PHOSPHORUS 4.1 mg/dL (2.7-4.5); POTASSIUM 3.5 mmol/L (3.5-5.1); SODIUM 143 mmol/L (136-145); TCO2 28 mmol/L (25-35)
[2019-02-13 07:39] VITALS: BP 126/80
[2019-02-13] MEDS: NORVASC PO SCH (09:16)
--- NOTE | 2019-02-13 14:02 | GASTROENTEROLOGY PROGRESS NOTE ---
DATE: 02/13/2019 The patient has not had any further evidence of GI bleeding. She has not noticed bright red blood per rectum or melenic stool. So far, all her GI workup has been negative. EGD, colonoscopy was non-yielding, so was her small-bowel follow-through. No pathology was seen there either. At this time her hemoglobin and hematocrit has been holding, and she has not had any GI symptoms. I would recommend that from a GI perspective she can be discharged to be followed up at the office. She will need either push enteroscopy or capsule endoscopy and/or a double balloon endoscopy. That will be determined at a later date. I have discussed the case with Dr. Liz and the patient and her as well. They understood and all the pertinent questions were answered. cc: Ryne Odell MD
--- NOTE | 2019-02-13 18:25 | DISCHARGE SUMMARY ---
ADMISSION DATE: 02/09/2019 DISCHARGE DATE: 02/13/2019 DISPOSITION: Home. FOLLOWUP: 1. Dr. Mary Velasco. 2. Dr. Odell. CONSULTATIONS: During this admission, Gastroenterology was consulted. The patient was seen by Dr. Odell. INVASIVE PROCEDURES: During this admission, EGD was done which was unremarkable. A colonoscopy was done that also showed just mild diverticulosis, otherwise unremarkable. DIAGNOSTIC DATA: Imaging studies of significance: A small bowel series showed no definite abnormality. ADMISSION DIAGNOSES: 1. Suspected upper gastrointestinal bleed. 2. Hypertension. 3. Dyslipidemia. DISCHARGE DIAGNOSES: 1. Acute gastrointestinal bleed with hemodynamic instability on presentation, improved. 2. Anemia secondary to acute gastrointestinal bleed. The patient is status post 2 packed red blood cells transfusion. Hemoglobin and hematocrit are stable. The patient underwent esophagogastroduodenoscopy and colonoscopy, both of which were normal, so outpatient small bowel studies have been arranged by Dr. Odell. 3. Hypertension, controlled. 4. Dyslipidemia, stable. DISCHARGE MEDICATIONS: 1. Pravastatin 10 mg p.o. at bedtime. 2. Losartan/hydrochlorothiazide 1 tablet daily. 3. Amlodipine 10 mg p.o. daily. 4. Aspirin 81 mg daily. 5. Ergocalciferol 50,000 capsule 1 tablet daily. 6. Iron sulfate 324 b.i.d. 7. Multivitamin 1 tablet daily. PRESENTING COMPLAINT: Diarrhea and blood for 2 days. HISTORY OF PRESENTING COMPLAINT: Ms. Trevino is a 68-year-old female with a history of hypertension and dyslipidemia. She came to the emergency department because of diarrhea with bloody maroon-colored stool. She said at one point she became dizzy and nearly passed out. Upon presenting to the emergency department, she was found to be remarkably pale. A repeat hemoglobin and hematocrit had gone down to 6.2. She was transfused and was transferred to the ICU. HOSPITAL COURSE: Ms. Trevino got a total of 2 PRBC transfusion. Hemoglobin and hematocrit remained stable. She underwent both EGD and colonoscopy, both of which did not reveal the cause of her bleed. During the hospital course, however, she seemed to be fairly stable after the blood transfusion. She did not show any more ongoing active GI bleed. Her hemoglobin and hematocrit remained stable. This morning she has been able to tolerate her diet. She has been up to the restroom and walking on the passage. We think she is stable for discharge. She is going to follow up with Dr. Odell. I have discussed the plan with Dr. Odell himself, and he will follow up with Ms. Trevino for outpatient small bowel investigations. This morning Ms. Trevino' vital signs are stable. Blood pressure is 126/80, pulse of 81, respiration is 16, temperature is 98 degrees. She is saturating 96% on room air. She is in stable condition for discharge. All of the discharge instructions were discussed with her. was at the bedside at the time of the encounter. Both of them voiced understanding. Time spent for discharge is 35 minutes. cc: MD Mary Lucas MD Khurshid Yousuf, MD
== END 2019-02-13 11:51 | disposition home or self-care (01) | DRG 378 ==
LOC: ED 15:19 → 4N 22:21 → SUATTDRO 22:21 → ICU 02-10 08:47 → 4N 02-12 15:16
PROVIDERS: ATTEND Internal Medicine
CPT/HCPCS: 36430; 74250; 80048; 80053; 80069; 81001; 82270; 82948; 85014; 85018; 85025; 85610; 85730; 86850; 86900; 86901; 86920; 87088; 93005; 93010; 96360; 99285; A9270; J3010; J7030; P9016; XXXXX